=== PATIENT | female | born 1990 | race Hispanic/Latino ===

== ENCOUNTER 2017-10-03 23:04 | Day surgery (SDC) | payer OTHER ==
[2017-10-03 23:51] VITALS: BP 121/72; TEMP 98.5; BMI 34.8
--- NOTE | 2017-10-04 00:35 | PDOC.EVN ---
Event Note - Event Note Event Note: @0030: Triage A PNC Patient first seen by Shaji Marquez (Resident) HPI: 27 yo G1Po at 35 weeks 3 days with irregular CTXs, dsch. No LOF, no fevers , no VB. Good FM. Has had repeated sonos this for "baby big". No GDM HX. Review of systems: complete ROS done and positive as per HPI only. Medical HX: neg Surgical HX: neg Social HX: neg OB History: G1 Physical exam: 121/72 Afebrile NAD Ut soft NT No gross evidence of VB or ROM CX closed/TH/High Monitors: NST reactive, contractions Q10 min, irreg Assessment: Threatened PTL at 35 weeks. No evidence ROM. Plan: 1. Amnisure sent per protocol 2. No evidence true PTL 3. No FFN as greater than 34 weeks 4. Await result.
[2017-10-04 00:37] LABS: Amnisure Test No Membranes Rupture (No Rupture)
[2017-10-04 00:38] LABS: Amnisure Internal Control QC ACCEPTABLE (ACCEPTABLE)
[2017-10-04 00:52] LABS: FFN Internal QC Analyzer PASS (PASS); FFN Internal QC Cassette PASS (PASS); Fetal Fibronectin Negative (Negative)
--- NOTE | 2017-10-04 00:59 | PDOC.EVN ---
Event Note - Event Note Event Note: Amnisure neg. VP3 to be checked tomorrow as results not in tonight. OK for outpatient follow up.
== END 2017-10-04 01:04 | disposition home or self-care (01) ==
LOC: L&D/OP 23:04
PROVIDERS: ATTEND Obstetrics & Gynecology
DX: O47.03 False labor before 37 completed weeks of gestation, third trimester (principal); Z3A.35 35 weeks gestation of pregnancy
CPT/HCPCS: 82731; 84112; 87480; 87510; 87660; 99283

== ENCOUNTER 2017-10-14 06:41 | Day surgery (SDC) | payer OTHER ==
[2017-10-14 07:13] VITALS: BP 110/64; TEMP 98; BMI 35.0
--- NOTE | 2017-10-14 07:40 | PDOC.LDHP ---
Labor and Delivery H&P Chief complaint: contractions HPI: 27yo @ 37.0wks with SCOTT of 11/04/17. She reports contractions q10min that started earlier this AM. Denies any vaginal discharge, vaginal bleeding or LOF. +FM. Denies any FUCHS, vision changes or swelling. Reports has been uncomplicated, but that she has had 2 additional US due to baby measuring big. Current gestational age (weeks): 37 Due date: 11/04/17 Dating criteria: other (Unsure if dated by LMP vs. US--awaiting [facility] records) Current complications: none (reports repeat US due to "baby measuring big") Abnormal US findings: No (reports baby measuring big) Past Medical History: none Current medications: pre- vitamins Previous surgical history: none Social history: none - Physical Exam Vital signs reviewed and normal: yes (BP: 110/64 HR: 71) General: NAD Heart: RRR Lungs: CTAB Abdomen: gravid Extremeties: no edema FHT: category 1 [place] contractions every: none - Vaginal Exam cm dilated: 1 Effacement: 25% Station: -2 - OB Labs Blood type: O RH: positive Antibody Screen: negative HIV: negative RPR: negative HEPSAg: negative 1 hour GCT: negative (BS of 100) GBS: positive Rubella: immune Additional Labs: hx of keyshawn and BV in s/p treatment. - Plan Plan: other (27yo @ 37.0wks w/ SCOTT of 11/04/17 who p/w contractions. Patient without any contractions on monitor and also denies any contractions currently. Encourage PO hydration. Labor precautions discussed. Follow-up at [facility] as scheduled.) <Olivia Orozco - Last Filed: 10/14/17 07:38> <Kayy Leonard - Last Filed: 10/14/17 08:07> Allergies/Adverse Reactions: Allergies Allergy/AdvReac Type Severity Reaction Status Date / Time No Known Allergies Allergy Verified 10/14/17 07:13 Attending Addendum - Attending Addendum I personally evaluated the patient and discussed the management with Dr. Orozco. I agree with the History, Examination, Assessment and Plan documented above. <Kayy Leonard - Last Filed: 10/14/17 08:07>
== END 2017-10-14 08:00 | disposition home or self-care (01) ==
LOC: L&D/OP 06:41
PROVIDERS: ATTEND Obstetrics & Gynecology
DX: O60.03 Preterm labor without delivery, third trimester (principal); Z3A.37 37 weeks gestation of pregnancy; Z79.899 Other long term (current) drug therapy
CPT/HCPCS: 99282

== ENCOUNTER 2017-11-02 13:07 | Day surgery (SDC) | payer OTHER ==
[2017-11-02 13:30] VITALS: BMI 36.4
[2017-11-02 13:31] VITALS: BP 118/83; TEMP 97.5
[2017-11-02 14:14] LABS: Amnisure Test No Membranes Rupture (No Rupture)
[2017-11-02 14:15] LABS: Amnisure Internal Control QC ACCEPTABLE (ACCEPTABLE)
--- NOTE | 2017-11-02 15:30 | PDOC.LDHP ---
Labor and Delivery H&P Chief complaint: contractions, other (Passage of mucous plug) HPI: 27 yo G1PO @ 39.5 wks by LMP presents here w/ cc of Ctx and possible loss of fluid. Says this morning started having vaginal pressure pain. Also having RUQ pain. Was feeling the ctx a lot. Thought they were getting a lot more regular. Also said this morning passed a mucous plug and was a little wet in her pants. Says it felt like she peed a little bit. Denies any vaginal itching or increased discharge. Denies any foul odor. Denies any urinary sx's. Denies fever /chills. denies n/v/d/c. Reports feeling baby move. Denies any bleeding. No other concerns or complaints at this time. Current gestational age (weeks): 39 (5 days) Due date: 11/04/17 Dating criteria: last menstrual period Grav: 1 Para: 0 Current complications: other (Baby measuring 4281 kg. EFW is in 95.7% on u/s 10/30/17. CECILIA 5.31 Family hx of Down syndrome.) Past Medical History: None Current medications: pre- vitamins Previous surgical history: none Allergies/Adverse Reactions: Allergies Allergy/AdvReac Type Severity Reaction Status Date / Time No Known Allergies Allergy Verified 10/14/17 07:13 Social history: none - Physical Exam Vital signs reviewed and normal: yes General: NAD Heart: RRR Lungs: CTAB Abdomen: gravid Extremeties: no edema FHT: category 2, late decelerations [place] contractions every: 5 min - Vaginal Exam cm dilated: 1 Effacement: 50% Station: -3 - OB Labs Blood type: O RH: positive Antibody Screen: negative HIV: negative RPR: negative HEPSAg: negative 1 hour GCT: negative GBS: positive Rubella: immune Additional Labs: gonorrhea negative hgb a1c 5.9. - Assessment in Third Trimester -Having Round ligament pain and pain in RUQ area. -In Early Labor phase - Plan Plan: observation in L&D -: 27 yo G1PO @ 39.5 wks here for ctx and possible rupture of membranes -Amniosure negative -Vaginal exam 1.5/50/-3. Will recheck cervix in a few hours and assess for any change. -Cat 2 strip. 1 late decel noted on monitor. FHR 150's. Moderate variability. Ctx every 5 minutes. Seem to be fairly regular. There was concern for LGA infant seen on previous U/S. Most recent u/s 10/30/17 shows EFW @ 4281 g. 95.7%. Pt does not have GDM. CECILIA was low at 5.31 cm on u/s 10/30/17. Performed bedside CECILIA on patient, calculated @ 11.71 cm. Possibility mentioned for patient to have due to large size. Pt is not GDM and size is not above 5000g. No indication for at this time. Pt can be induced and have trial of labor. CECILIA improved on bedside U/S today. Will keep patient in observations and recheck for cervical change in a few hours. We will keep her on the monitor and continue to assess for any stress.
== END 2017-11-02 16:25 | disposition home or self-care (01) ==
LOC: L&D/OP 13:07
PROVIDERS: ATTEND Obstetrics & Gynecology
DX: O47.1 False labor at or after 37 completed weeks of gestation (principal); Z3A.39 39 weeks gestation of pregnancy; Z79.899 Other long term (current) drug therapy
CPT/HCPCS: 84112

== ENCOUNTER 2017-11-04 12:08 | Inpatient (IN) | payer MEDICAID, OTHER, SELFPAY ==
[2017-11-04] MEDS ORDERED: Bupivacaine 0.25% HCL 30 ML VIAL ONE (13:36)
[2017-11-04] MEDS: Lactated Ringer's 1,000 ML IV SCH (21:55)
[2017-11-04 21:58] VITALS: BMI 36.8
[2017-11-04] MEDS ORDERED: Lidocaine 1% (PF) 30 ML VIAL SC PRN (22:32)
[2017-11-04] MEDS ORDERED: Ondansetron HCl/PF 4 MG/2 ML Vial IVP PRN (22:32)
[2017-11-04] MEDS ORDERED: Acetaminophen 500 MG TAB PO PRN (22:32)
[2017-11-04] MEDS ORDERED: Promethazine HCl 25 MG/ML VIAL IM PRN (22:32)
[2017-11-04] MEDS ORDERED: LR / Pitocin 40 units/1000 ml 1,000 ML IV PRN (22:32)
[2017-11-04 22:44] LABS: Hemoglobin 12.2 g/dL (12.0-16.0); Mean Corpuscular Hemoglobin 30.9 pg (27.0-31.0); Mean Corpuscular Volume 90.8 fl (81.0-99.0); Mean Platelet Volume 8.3 fL (7.4-10.4); Platelet Count 157 thou/uL (130-400); RBC Distribution Width 13.7 % (11.5-14.5); Red Blood Cell (RBC) Count 3.96 mill/uL (4.20-5.40); White Blood Cell (WBC) Count 8.8 thou/uL (4.8-10.8)
[2017-11-04] MEDS ORDERED: Penicillin G Potassium 5 MILL.UNITS in Sodium Chloride 0.9% 100 ML IVPB SCH (22:45)
[2017-11-04] MEDS ORDERED: Carvedilol 6.25 MG TAB PO SCH (22:45)
--- NOTE | 2017-11-04 23:04 | PDOC.LDHP ---
Labor and Delivery H&P Chief complaint: scheduled induction HPI: 27 yo @ 40w0d by LMP presents for scheduled induction. She was seen 2 days ago for contractions and sent home with return precautions. Today she denies contractions or vaginal bleeding. She does state that she has had a normal amount of vaginal discharge. She also notes movement. She has no chest pain, sob, headaches, n/v/d, vision changes, or edema. No other concerns this morning. Current gestational age (weeks): 40 (0) Due date: 11/04/17 Dating criteria: last menstrual period Grav: 1 Para: 0 Current complications: none Abnormal US findings: No (Concern for LGA) Current medications: pre- vitamins Previous surgical history: none - Physical Exam Vital signs reviewed and normal: yes General: NAD, resting Heart: RRR Lungs: nonlabored breathing Abdomen: gravid Extremeties: no edema FHT: category 1 [place] contractions every: 5-7 minutes - Vaginal Exam cm dilated: 1 Effacement: 50% Station: -2 - OB Labs Blood type: O RH: positive Antibody Screen: negative HIV: negative RPR: negative HEPSAg: negative 1 hour GCT: negative GBS: positive Urine drug screen: not done Rubella: immune - Assessment L&D Assessment: elective induction at term 27 yo @ 40w0d presents for elective induction 1. Term - Cytotec induction - Continue monitoring - Continue q4h cervical checks - Continue supportive care. - Plan Plan: admit to L&D, cervical ripening <Chandan Crawford - Last Filed: 11/04/17 23:03> <Carmen Powell - Last Filed: 11/05/17 00:46> Allergies/Adverse Reactions: Allergies Allergy/AdvReac Type Severity Reaction Status Date / Time No Known Allergies Allergy Verified 11/04/17 21:48 Attending Addendum - Attending Addendum I personally evaluated the patient and discussed the management with Dr. Crawford. I agree with the History, Examination, Assessment and Plan documented above with any addition or exceptions noted below- Briefly this is a 27 yo @ 40 weeks admitted for elective induction; concern for macrosomis infant- last USG showed EFW= 4200g. Normal labs including GDM screen. Patient denies complaints. Afebrile VSS SVE 1.5/50/-2/mid position and soft. Category 1 FHTs. [place] - ctx q7-9 min. A/P: IUP @40 weeks- Cytotec #1 placed at 2300. Recheck in 3 hours. Reassuring FHTs. <Carmen Powell - Last Filed: 11/05/17 00:46>
[2017-11-05] MEDS ORDERED: Misoprostol 100 MCG TAB VAG SCH
--- NOTE | 2017-11-05 02:22 | PDOC.LDPN ---
Labor & Delivery Progress Note - Subjective Subjective: comfortable, painful contractions - Objective Vital signs reviewed and normal: yes General: NAD, breathing through contractions Dilation: 2.5 cm Effacement: 50% Station: -2 FHT: category 1 [place] contractions every: 3 minutes Resuscitative measures: maternal IV fluids, maternal position change - Assessment (1) Term Code(s): Z34.80 - ENCOUNTER FOR SUPRVSN OF NORMAL , UNSP TRIMESTER Current Visit: Yes Status: Acute Comment: 27 yo @ 40w1d by LMP scheduled for elective induction 1. Term - Cytotec x1, too frequent contractions to continue - Continue supportive care - Continue q4H checks Plan: continue plan of care, resuscitative measures
[2017-11-05] MEDS: Lactated Ringer's 1,000 ML IV SCH ×4 (03:13→19:16)
[2017-11-05] MEDS ORDERED: Naloxone HCl 0.4 mg/ml Vial IVP PRN ×2 (08:39)
[2017-11-05] MEDS ORDERED: Promethazine HCl 25 MG/ML VIAL IM PRN (08:39)
[2017-11-05] MEDS ORDERED: Acetaminophen 325 MG TAB PO PRN (08:39)
[2017-11-05] MEDS ORDERED: diphenhydrAMINE 50 MG/ML VIAL IVP PRN (08:39)
[2017-11-05] MEDS ORDERED: ePHEDrine/0.9% NaCl/PF SYRINGE 50 mg/10 ml SLOW IVP PRN (08:39)
[2017-11-05] MEDS ORDERED: Lactated Ringer's 500 ML IV PRN (08:39)
[2017-11-05] MEDS ORDERED: Ondansetron HCl/PF 4 MG/2 ML Vial IVP PRN (08:39)
[2017-11-05] MEDS ORDERED: Eucerin (Mineral Oil/Petrolatum,White) 30 gm Jar TOP PRN (08:39)
[2017-11-05] MEDS: Bupivacaine 0.5% 20 ML, Fentanyl 400 MCG in Sodium Chloride 0.9% 72 ML EPIDURAL SCH ×2 (08:41→16:01)
[2017-11-05] MEDS ORDERED: Fentanyl 4mcg/Marcaine 0.1% Cassette 100 ML EPIDURAL SCH (08:45)
[2017-11-05] MEDS ORDERED: Communication Order-Pharmacy FS SCH (08:45)
--- NOTE | 2017-11-05 09:06 | PDOC.LDPN ---
Labor & Delivery Progress Note - Subjective Subjective: comfortable, vaginal pressure - Objective Vital signs reviewed and normal: yes General: NAD, resting Uterine fundus: non tender SVE: 8:30 Dilation: 4 Effacement: 50% Station: -2 FHT: category 1, variability present [place] contractions every: 5 - Assessment (1) Term Code(s): Z34.80 - ENCOUNTER FOR SUPRVSN OF NORMAL , UNSP TRIMESTER Current Visit: Yes Status: Acute Comment: 27 yo @ 40w1d by LMP scheduled for elective induction 1. Term - Cytotec x1, too frequent contractions to continue - Continue supportive care - Continue q4H checks Plan: continue plan of care -: 27 yo F @40.1 weeks here for induction of Labor. Received cytotec when she came in last night. Was 1/50/-2@2300. She had frequent ctx with pain. Cytotec has since been removed. She has now progressed from a 3/50/-2 @ 6:30 to a 4/50/-2 @ 8:30. Will continue check her in a few hours and assess for progress. Will likely want to add pitocin if begins to stall out Epidural in place. Pain being well controlled at this time. FHT 155. Category 1 strip. Accelerations noted. Ctx every 5 mins. Will continue to continuously monitor. <Alexandre Edward - Last Filed: 11/05/17 08:59> Attending Addendum - Attending Addendum I personally evaluated the patient and discussed the management with Dr. Edward I agree with the History, Examination, Assessment and Plan documented above with any addition or exceptions noted below. 27 yo female at 40.1 wks by LMP/12.1 wk sono here for elective late term IOL. Doing well. Pain intensity increasing with contractions. Now 4/50/-2. Membranes intact. Cat 1 tracing. 1. IOL for sIUP: IOB labs and anatomy sono reviewed. 1 hour gtt = 100. 3T negative. Flu/Tdap given. s/p miso x1 2. Glucose intolerance: A1c = 5.9% in 1T. 1 hour gtt = 100. 3. Anemia of 4. LGA fetus: 4281 g at 39.2 wks. Cephalic on exam. 5. BMI 37: Maternal wt gain this 29 lbs 6. GBS pos: On PCN. Continue continuous monitoring. Will repeat exam in 2 hours. If unchanged , will start pitocin. Shanelle <Tova Omer - Last Filed: 11/05/17 13:57>
[2017-11-05] MEDS: Penicillin G 2.5 MILL.units 2.5 MILL.UNITS in Premix Bag 1 BAG IVPB SCH ×5 (11:34→23:36)
--- NOTE | 2017-11-05 12:23 | PDOC.LDPN ---
Addendum entered and electronically signed by Alexandre Edward MD 11/05/17 12:56 : Station on this check @12 and check @ 10:30 were -2, not 0. Has not made change since 8:30 Original Note: Labor & Delivery Progress Note - Subjective Subjective: comfortable - Objective Vital signs reviewed and normal: yes General: NAD, resting Uterine fundus: non tender SVE: 12:00 Dilation: 4 Effacement: 50% Station: 0 FHT: category 2, late decelerations Other exam findings: Light fluid AROM: clear fluid IUPC placed: yes Resuscitative measures: maternal oxygen, maternal position change - Assessment (1) Term Code(s): Z34.80 - ENCOUNTER FOR SUPRVSN OF NORMAL , UNSP TRIMESTER Current Visit: Yes Status: Acute Plan: continue plan of care -: 27 yo @ 40w1d by LMP scheduled for elective induction -Having some late decelrations and possible minimal variability. FHT 150. -Vaginal exam 50/0. Unchanged from check at 10:30. -Due to Category 2 heart strip we have ruptured membranes and placed IUPC. FHT show moderate variability and FHR in 140. -Adjusting moms position and giving mom oxygen. -Will continue to monitor and recheck vaginal exam at 2:30 -Will hold pitocin for augmentation at this time due to Category 2 strip. -Epidural in place. Pain being well controlled. Maternal vital signs stable. <Alexandre Edward - Last Filed: 11/05/17 12:24> Attending Addendum - Attending Addendum I personally evaluated the patient and discussed the management with Dr. Edward I agree with the History, Examination, Assessment and Plan documented above with any addition or exceptions noted below. 27 yo female at 40.1 wks by LMP/12.1 wk sono here for elective late term IOL. Epidural in place. No pain. FHT reassuring cat 2. Changes to cat 1 with external stim. AROM with minimal fluid. FSE placed. FHT improved to cat 1. Will monitor closely. Start pit with reassuring. Exam unchanged from 0830 but contractions inadequate. Fetus now improved after epidural. 1. IOL for sIUP: IOB labs and anatomy sono reviewed. 1 hour gtt = 100. 3T negative. Flu/Tdap given. s/p miso x1 AROM with minimal fluid at 1200, FSE placed. 2. Glucose intolerance: A1c = 5.9% in 1T. 1 hour gtt = 100. 3. Anemia of 4. LGA fetus: 4281 g at 39.2 wks. Cephalic on exam. 5. BMI 37: Maternal wt gain this 29 lbs 6. GBS pos: On PCN. Continue continuous monitoring. Will repeat exam in 2 hours or prn. Add pitocin when able. Shanelle <Tova Omer - Last Filed: 11/05/17 14:07>
--- NOTE | 2017-11-05 12:27 | PDOC.LDPN ---
Addendum entered and electronically signed by Alexandre Edward MD 11/05/17 12:29 : This note is timed at 10:30 when the check was performed. Original Note: Labor & Delivery Progress Note - Subjective Subjective: comfortable - Objective Vital signs reviewed and normal: yes General: NAD, resting Uterine fundus: non tender SVE: 10:30 Dilation: 4 Effacement: 50% Station: 0 FHT: category 1, variability present [place] contractions every: 5-6 - Assessment (1) Term Code(s): Z34.80 - ENCOUNTER FOR SUPRVSN OF NORMAL , UNSP TRIMESTER Current Visit: Yes Status: Acute Plan: continue plan of care, pitocin for augmentation -: 27 yo F @40.1 weeks here for induction of Labor. Received cytotec when she came in last night. Was 1/50/-2@2300. She had frequent ctx with pain. Cytotec has since been removed. She has now progressed from a 3/50/-2 @ 6:30 to a 4/50/-2 @ 8:30. Recent check 4/50/-2 @10:30. Has not made change at this time. -Will start pitocin for augmentation of labor. Epidural in place. Pain being well controlled at this time. FHT 155. Category 1 strip. Accelerations noted. Ctx every 5 mins. Will continue to continuously monitor. <Alexandre Edward - Last Filed: 11/05/17 12:27> Attending Addendum - Attending Addendum I personally evaluated the patient and discussed the management with Dr. Edward I agree with the History, Examination, Assessment and Plan documented above with any addition or exceptions noted below. 27 yo female at 40.1 wks by LMP/12.1 wk sono here for elective late term IOL. Doing well. Just recently received epidural for pain control. Repeat exam unchanged at 4/50/-2. Membranes intact. FHT cat 1 to reassuring cat 2 after epidural. Starting IVF bolus. Maternal BP lower after epidural but not hypotensive. Continue to adjust and monitor closely. 1. IOL for sIUP: IOB labs and anatomy sono reviewed. 1 hour gtt = 100. 3T negative. Flu/Tdap given. s/p miso x1 2. Glucose intolerance: A1c = 5.9% in 1T. 1 hour gtt = 100. 3. Anemia of 4. LGA fetus: 4281 g at 39.2 wks. Cephalic on exam. 5. BMI 37: Maternal wt gain this 29 lbs 6. GBS pos: On PCN. Continue continuous monitoring. Will repeat exam in 2 hours or prn. Add pitocin when able vs AROM. Shanelle <Tova Omer - Last Filed: 11/05/17 14:02>
[2017-11-05] MEDS ORDERED: LR 500 ML/Oxytocin 10 units 500 ML IV SCH (13:30)
--- NOTE | 2017-11-05 14:28 | PDOC.LDPN ---
Labor & Delivery Progress Note - Subjective Subjective: comfortable - Objective Vital signs reviewed and normal: yes General: NAD, resting Uterine fundus: non tender SVE: 2:20 Dilation: 4.5 Effacement: 75% Station: -2 FHT: category 2, late decelerations, variability present [place] contractions every: 3-5 AROM: clear fluid IUPC placed: yes FSE placed: yes - Assessment (1) Term Code(s): Z34.80 - ENCOUNTER FOR SUPRVSN OF NORMAL , UNSP TRIMESTER Current Visit: Yes Status: Acute Plan: continue plan of care, pitocin for augmentation -: 27 yo @ 40w1d by LMP scheduled for elective induction -Having some late decelrations and possible minimal variability. FHT 150. Cat 2 strip. Improves to Cat 1 strip with stimulation of the head. Accelerations noted. -AROM w/ minimal fluid @ 1200 -Vaginal exam 4.5/75%/-2. Has made some change from check at noon. -FSE in place. IUPC placed at this time to check strength of contractions. -Adjusting moms position and giving mom oxygen. -Will continue to monitor and recheck vaginal exam at 4:30 -Started giving pitocin. Pitocin at a rate of 8 -Epidural in place. Pain being well controlled. -GBS positive. Tx with penicillin -Maternal vital signs stable. Glucose intolerance: A1c = 5.9% in 1T. 1 hour gtt = 100. Anemia of LGA fetus: 4281 g at 39.2 wks. Cephalic on exam. BMI 37: Maternal wt gain this 29 lbs <Alexandre Edward - Last Filed: 11/05/17 14:32> Attending Addendum - Attending Addendum I personally evaluated the patient and discussed the management with Dr. Edward I agree with the History, Examination, Assessment and Plan documented above with any addition or exceptions noted below. 27 yo female at 40.1 wks by LMP/12.1 wk sono here for elective late term IOL. Maternal BP improving with IVFs along with FHT. Cat 1. Now 4.5/75/-2. 1. IOL for sIUP: IOB labs and anatomy sono reviewed. 1 hour gtt = 100. 3T negative. Flu/Tdap given. s/p miso x1 AROM with minimal fluid at 1200, FSE placed. IUPC placed 1415 2. Glucose intolerance: A1c = 5.9% in 1T. 1 hour gtt = 100. 3. Anemia of 4. LGA fetus: 4281 g at 39.2 wks. Cephalic on exam. 5. BMI 37: Maternal wt gain this 29 lbs 6. GBS pos: On PCN - x 3 doses. Continue continuous monitoring. Will repeat exam in 2 hours or prn. FSE, IUPC and pitocin per protocol. Shanelle <Tova Omer - Last Filed: 11/05/17 14:38>
--- NOTE | 2017-11-05 17:43 | PDOC.LDPN ---
Labor & Delivery Progress Note - Subjective Subjective: comfortable - Objective Vital signs reviewed and normal: yes General: NAD, resting Uterine fundus: non tender SVE: 1530 Dilation: 5 Effacement: 75% Station: -1 FHT: category 2, late decelerations, variability present [place] contractions every: 3-5 min AROM: clear fluid IUPC placed: yes FSE placed: yes Resuscitative measures: maternal oxygen - Assessment (1) Term Code(s): Z34.80 - ENCOUNTER FOR SUPRVSN OF NORMAL , UNSP TRIMESTER Current Visit: Yes Status: Acute Plan: continue plan of care, pitocin for augmentation -: 27 yo @ 40w1d by LMP scheduled for elective induction -Had some late variables at 345 per report of the nurse. Thought was due to hyperstimulation from the Pitocin. d/c the pitocin. FHT have since improved, moderate variability. FHT 150. Cat 2 strip. -AROM w/ minimal fluid @ 1200 -Vaginal exam 5/75%/-1. Making change from check @ 1430 -FSE in place. IUPC placed. -Adjusting moms position and giving mom oxygen. -Will continue to monitor and recheck vaginal exam in a few hours -Pitocin was briefly stopped. FHT have since improved. Will restart pitocin now. -Epidural in place. Pain being well controlled. -GBS positive. Tx with penicillin x3 -Maternal vital signs stable. Glucose intolerance: A1c = 5.9% in 1T. 1 hour gtt = 100. Anemia of LGA fetus: 4281 g at 39.2 wks. Cephalic on exam. BMI 37: Maternal wt gain this 29 lbs <Alexandre Edward - Last Filed: 11/05/17 17:43> Attending Addendum - Attending Addendum I personally evaluated the patient and discussed the management with Dr. Edward I agree with the History, Examination, Assessment and Plan documented above with any addition or exceptions noted below. 27 yo female at 40.1 wks by LMP/12.1 wk sono here for elective late term IOL. Became tachysystole with FHT cat 2. Pit stopped. Now Cat 1. SVE 5/75/-2. 1. Elective IOL for late-term sIUP: IOB labs and anatomy sono reviewed. 1 hour gtt = 100. 3T negative. Flu/Tdap given. s/p miso x1 AROM with minimal fluid at 1200, FSE placed. IUPC placed 1415 Pit per protocol. 2. Glucose intolerance: A1c = 5.9% in 1T. 1 hour gtt = 100. 3. Anemia of 4. LGA fetus: 4281 g at 39.2 wks. Cephalic on exam. 5. BMI 37: Maternal wt gain this 29 lbs 6. GBS pos: On PCN - x 3 doses. Continue continuous monitoring. Will repeat exam in 2 hours or prn. FSE, IUPC and pitocin per protocol. Shanelle <Tova Omer - Last Filed: 11/06/17 12:35>
--- NOTE | 2017-11-05 19:59 | PDOC.LDPN ---
Labor & Delivery Progress Note - Subjective Subjective: comfortable - Objective Vital signs reviewed and normal: yes General: NAD, resting Dilation: 7.5 Effacement: 100% Station: -1 FHT: category 2 [place] contractions every: 2 minutes AROM: meconium stained fluid IUPC placed: yes FSE placed: yes Resuscitative measures: maternal oxygen, maternal IV fluids, maternal position change - Assessment (1) Term Code(s): Z34.80 - ENCOUNTER FOR SUPRVSN OF NORMAL , UNSP TRIMESTER Current Visit: Yes Status: Acute Comment: 27 yo @ 40w1d by LMP scheduled for elective induction 1. Term , active labor - Continue q2h checks - Pitocin decreased - Continue supportive care Plan: continue plan of care, pitocin for augmentation, resuscitative measures
--- NOTE | 2017-11-05 21:59 | PDOC.LDPN ---
Labor & Delivery Progress Note - Subjective Subjective: comfortable, vaginal pressure, loss of fluid (mec-stained) - Objective Vital signs reviewed and normal: yes General: NAD Uterine fundus: non tender Dilation: 9/100/-1 FHT: category 2, early decelerations, variable decelerations, variability present [place] contractions every: 3-4 min AROM: meconium stained fluid - Assessment (1) LGA (large for gestational age) fetus affecting mother, antepartum Code(s): O36.60X0 - MATERNAL CARE FOR EXCESS GROWTH, UNSP TRIMESTER, UNSP Current Visit: Yes Status: Acute Qualifiers: Fetus number: single or unspecified fetus Qualified Code(s): O36.60X0 - Maternal care for excessive growth, unspecified trimester, not applicable or unspecified (2) Term Code(s): Z34.80 - ENCOUNTER FOR SUPRVSN OF NORMAL , UNSP TRIMESTER Current Visit: Yes Status: Acute Plan: continue plan of care, pitocin for augmentation -: 27 yo @ 40w1d by LMP scheduled for elective induction 1. Term , active labor - Pitocin re-started with reassuring FHTs - Continue supportive care 2. LGA fetus - caution w/ 2nd stage of labor & delivery
--- NOTE | 2017-11-05 23:50 | PDOC.LDPN ---
Labor & Delivery Progress Note - Subjective Subjective: comfortable - Objective Vital signs reviewed and normal: yes General: NAD Dilation: Anterior lip Effacement: 100% Station: 0 FHT: category 2, variable decelerations [place] contractions every: 3 minutes IUPC placed: yes FSE placed: yes Resuscitative measures: maternal oxygen, maternal IV fluids, maternal position change - Assessment (1) Term Code(s): Z34.80 - ENCOUNTER FOR SUPRVSN OF NORMAL , UNSP TRIMESTER Current Visit: Yes Status: Acute Comment: 27 yo @ 40w1d by LMP scheduled for elective induction 1. Term , active labor - Pitocin re-started with reassuring FHTs - Continue supportive care 2. LGA fetus - caution w/ 2nd stage of labor & delivery Plan: continue plan of care, pitocin for augmentation
[2017-11-06] MEDS ORDERED: Lidocaine 1% (PF) 30 ML VIAL ONE (01:18)
[2017-11-06 04:16] LABS: Actual Bicarbonate (HCO3a) 23.4 mEq/L (22-26); Analyzer IN Cardio OR; Base Excess (BEa) -5.9 mEq/L (0 (+/-) 2.5)
--- NOTE | 2017-11-06 04:23 | PDOC.OPDEL ---
OB Operative/Delivery Note Delivery Dr/Surgeon: Ty Khan Assist: Attending- Dr. Powell Pre-Delivery Diagnosis: elective induction, other (LGA infant) Procedure/Post Delivery Dx: spontaneous vaginal delivery Weeks gestation: 40 Anesthesia: epidural - Additional Findings/Plan Placenta delivered: spontaneous Repaired Obstetrical Laceration: 4th degree Post delivery plan: routine recovery
[2017-11-06] MEDS: Ibuprofen 800 MG TAB PO PRN ×2 (06:34→22:15)
--- NOTE | 2017-11-06 08:05 | DN-2 ---
DELIVERY DATE: 11/06/2017 DELIVERY TIME: 04:01 a.m. RESIDENT SURGEON: Michael Khan M.D. WEB DEVELOPMENT INTERN SURGEON: Chandan Crawford M.D. ATTENDING SURGEON: Carmen Powell M.D. ANESTHESIA: Epidural, 20 mL of 1% lidocaine with epinephrine. ESTIMATED BLOOD LOSS: 450 mL PREOPERATIVE DIAGNOSES: 1. Induction of term intrauterine . 2. Large gestational age. 3. GBS positive. POSTOPERATIVE DIAGNOSES: 1. Term intrauterine , delivered. 2. Fourth degree perineal laceration status post repair. 3. GBS colonized with adequate prophylaxis. 4. LGA . INDICATIONS: Ms. Delaney is a 27-year-old G1, P0 at 40.2 weeks by LMP, who presented for induction of labor indicated for post-dates and LGA fetus on ultrasound. DELIVERY NOTE: Ms. Delaney is a 27-year-old G1, P0 at 40.2 weeks, delivered a viable male at 4:01 a.m. on 11/06/2017. Following an uneventful antepartum course, a vigorous was delivered over nonintact perineum which had an episiotomy cut prior to delivery of the head and subsequently extended to a 4th degree laceration. The infant delivered in the occiput anterior position. Anterior shoulder and remainder of the body were delivered. No nuchal cord was noted. The head was held down and nares and mouth were bulb suctioned. Cord was cut and clamped. Cord gas and cord blood were collected. The placenta was delivered in the Deutsch presentation at 04:12 a.m. Three-vessel cord was noted and the placenta appeared to be intact. Fundal massage was performed and the fundus was found to be firm. Cervix was found to be free of lacerations; however, there was a fourth degree perineal laceration as noted previously. The rectal mucosa was reapproximated with a running nonlocking 3-0 chromic stitch. The rectal sphincter was reapproximated with 4 [id number] suture using 3-0 Vicryl. The [id number] sutures were placed along the posterior, superior, inferior and anterior fascia of the sphincter muscle. The vaginal mucosa was reapproximated using a 3-0 Vicryl in the usual fashion. Adequate hemostasis was noted. The vagina and cervix were again inspected and found to be hemostatic. Prior to repair the laceration, approximately 20 mL of 1% lidocaine without epinephrine was injected for additional comfort. During the repair, the patient received 1 mg of IV Stadol for additional pain control. The went to the nursery in good condition for routine care. Apgars were 8 and 9 at 1 and 5 minutes respectively. Infants weight was 10 pounds 9 ounces. The patient tolerated the delivery and the laceration repair well and went to the unit after routine recovery. Following the repair of the laceration, an incorrect sponge count was found. After extensive examination of the patient's room, delivery supplies, and products of conception, the sponge was not found. A KUB to verify that the lap is not located in the patient is currently pending. [facility]
[2017-11-06] MEDS ORDERED: Preparation H Ointment 28 GM TUBE PR PRN (08:17)
[2017-11-06] MEDS ORDERED: diphenhydrAMINE 25 MG CAP PO PRN (08:17)
[2017-11-06] MEDS ORDERED: Ferrous Sulfate 325 MG TAB PO SCH (08:17)
[2017-11-06] MEDS ORDERED: Ibuprofen 800 MG TAB PO SCH (08:17)
[2017-11-06] MEDS ORDERED: Lanolin Ointment 7 GM TUBE TOP PRN (08:17)
[2017-11-06] MEDS ORDERED: LR / Pitocin 40 units/1000 ml 1,000 ML IV SCH (08:17)
[2017-11-06] MEDS ORDERED: Adacel (T-DAP) 0.5 ML VIAL IM ONE (08:17)
[2017-11-06] MEDS ORDERED: Bisacodyl 10 MG SUPP PR PRN (08:17)
[2017-11-06] MEDS ORDERED: Benzocaine/Menthol 20-0.5% 60 ML CAN TOP PRN (08:17)
[2017-11-06 08:41] LABS: #Basophils 0.1 thou/uL (0.0-0.2); #Monocytes 0.9 thou/uL (0.11-0.59); %Basophils 0.4 % (0.0-1.0); %Eosinophils 0.1 % (0.0-10.0); %Lymphocytes 6.2 % (21.0-51.0); %Monocytes 5.6 % (0.0-10.0); %Neutrophils 87.6 % (42.0-75.0); Hemoglobin 10.9 g/dL (12.0-16.0); Mean Corpuscular HGB CONC 32.1 g/dL (32.0-36.0); Mean Corpuscular Hemoglobin 29.9 pg (27.0-31.0); Platelet Count 120 thou/uL (130-400); RBC Distribution Width 13.5 % (11.5-14.5); Red Blood Cell (RBC) Count 3.65 mill/uL (4.20-5.40); White Blood Cell (WBC) Count 15.9 thou/uL (4.8-10.8)
--- NOTE | 2017-11-06 08:59 | RAD ---
TWO VIEWS OF THE ABDOMEN: INDICATION: Incorrect lap count. IMPRESSION: There is displacement of the small bowel and large bowel superiorly within the abdominal cavity likel y related to a gravid uterus. There is mixed density material seen within the lower pelvis which may reflect packing in the region of the vagina. No additional suspicious radiopaque density consistent with a raytec sponge is grossly evident. The upper quadrants are not included in the field of view. Would recommend consideration for repeat imaging to evaluate both the right and left upper quadrant if the abdominal cavity was entered into during the procedure. Findings were called to the L and D floor to the PAPER BALING MACHINE OPERATOR physician on service at 7:56 a.m. on 11/06/17. POS: [facility]
[2017-11-06] MEDS: Docusate Calcium (SURFAK) 240 MG CAP PO SCH ×2 (09:23→21:08)
[2017-11-06] MEDS: Prenatal Vitamin 1 TAB PO SCH (09:23)
[2017-11-06] MEDS: Polyethylene Glycol 3350 17 GM Packet PO SCH (09:23)
[2017-11-06] MEDS ORDERED: CEFAZOLIN/Water 2 GM/20 ML SYRINGE SLOW IVP SCH (10:15)
[2017-11-06] MEDS: Lactated Ringer's 1,000 ML IV SCH (14:45)
[2017-11-06] MEDS: Ibuprofen 800 MG TAB PO SCH ×2 (15:01→15:07)
[2017-11-06] MEDS: Ferrous Sulfate 325 MG TAB PO SCH (17:17)
[2017-11-07] MEDS: Penicillin G 2.5 MILL.units 2.5 MILL.UNITS in Premix Bag 1 BAG IVPB SCH ×3 (01:17→01:20)
[2017-11-07] MEDS: Lactated Ringer's 1,000 ML IV SCH ×2 (01:19→08:43)
[2017-11-07] MEDS ORDERED: Ibuprofen 800 MG TAB PO SCH (02:00)
[2017-11-07] MEDS: Ibuprofen 800 MG TAB PO SCH ×3 (05:49→22:05)
[2017-11-07] MEDS: HYDROcodone/Acetaminophen 5/325 mg Tablet PO PRN ×3 (05:49→22:05)
[2017-11-07 06:23] LABS: Hemoglobin 9.5 g/dL (12.0-16.0); Mean Corpuscular HGB CONC 34.1 g/dL (32.0-36.0); Mean Corpuscular Hemoglobin 31.5 pg (27.0-31.0); Mean Corpuscular Volume 92.5 fl (81.0-99.0); Mean Platelet Volume 7.7 fL (7.4-10.4); Platelet Count 123 thou/uL (130-400); RBC Distribution Width 13.7 % (11.5-14.5); White Blood Cell (WBC) Count 11.1 thou/uL (4.8-10.8)
[2017-11-07] MEDS: Prenatal Vitamin 1 TAB PO SCH (08:44)
[2017-11-07] MEDS: Ferrous Sulfate 325 MG TAB PO SCH ×2 (08:44→18:26)
[2017-11-07] MEDS: Polyethylene Glycol 3350 17 GM Packet PO SCH (08:44)
[2017-11-07] MEDS: Docusate Calcium (SURFAK) 240 MG CAP PO SCH ×2 (08:44→22:05)
[2017-11-07] MEDS: Milk Of Magnesia 30 ML UDCUP PO PRN (08:44)
--- NOTE | 2017-11-07 09:08 | PDOC.PP ---
Post Progress Note Post Day #: 1 Subjective: CC: Pernieal pain HPI: patient reports rectal pain with passing gas. No BM yet. pain otherwise controlled. Having some difficulty but working with senior market intelligence consultant. PO intake tolerated: yes Flatus: yes (No BM) Ambulation: yes Vital Signs (12 hours) Temp Pulse Resp BP 11/07/17 08:38 97.6 F 56 L 20 106/52 L 11/07/17 07:40 98.2 F 78 16 11/07/17 04:00 98.2 F 78 16 11/07/17 00:00 98.6 F 75 16 122/79 Weight Weight 103.419 kg - Physical Examination General: NAD Cardiovascular: no m/r/g, RRR Respiratory: clear to auscultation bilaterally, non-labored breathing Abdominal: + bowel sounds, lochia (vaginal swelling nearly resolved. perineum without drainaged or d/c.), no distention, appropriately TTP Fundus firm & at: umbilicus Extremities: negative homans (B) Neurological: no gross focal deficits Result Diagrams: 11/07/17 05:54 Additional Labs: Post Labs Blood Type O POSITIVE 11/04/17 21:55 (1) LGA (large for gestational age) fetus affecting mother, antepartum Code(s): O36.60X0 - MATERNAL CARE FOR EXCESS GROWTH, UNSP TRIMESTER, UNSP Status: Acute QualifierTitle: Fetus number: single or unspecified fetus Qualified Code( s): O36.60X0 - Maternal care for excessive growth, unspecified trimester, not applicable or unspecified Comment: 27 yo G1 now P1 delivered via on 11/06/17 at 0401. Pain well controlled. Ambulating and eating. H&H trending down but no signs of continued blood loss. Likely 2/2 hemodiluation. will continue to monitor overnight. KUB did not reveal raytec in patient. Likely only 19 raytec at beginning of case. (2) Fourth degree laceration of perineum during delivery, Code(s): O70.3 - FOURTH DEGREE PERINEAL LACERATION DURING DELIVERY Status: Acute Comment: No BM yet but passing gas. Continue bowel regimen. Will avoid narcotics if possible. BID sitz baths. Ice pack PRN. <Michael Khan W - Last Filed: 11/07/17 09:06> Vital Signs (12 hours) Temp Pulse Resp BP 11/07/17 08:38 97.6 F 56 L 20 106/52 L 11/07/17 07:40 98.2 F 78 16 Weight Weight 103.419 kg Result Diagrams: 11/07/17 05:54 Additional Labs: Post Labs Blood Type O POSITIVE 11/04/17 21:55 <Tova Omer - Last Filed: 11/07/17 17:41> Attending Addendum - Attending Addendum I personally evaluated the patient and discussed the management with Dr. Khan I agree with the History, Examination, Assessment and Plan documented above with any addition or exceptions noted below. 27 yo now female s/p complicated by 4th degree laceration on 11/06/17 at 0401 after prolonged elective IOL. PPD #1 Doing well. Lochia appropriate. Ambulating only in room. Vulvar edema improving. + flatus. Voiding well. No BM. Pain controlled. VSS. Afebrile. Fundus firm below umbilicus. Vulvar edema improving. No hematoma. Incision intact. No drainage. No communications. 1. s/p complicated : Routine care. 2. 4th degree laceration s/p repair: Ancef x1 given. No s/sx of infection at this time. Edema improved on exam today. Incision in tact. Pain controlled. On BM regiment. Precautions discussed. 3. Glucose intolerance: Follow up outpatient. 4. Anemia of : Continue supplemental iron. 5. Throbocytopenia: Will continue to trend. Not pathologic at this time. No mucousal bleeding. No placental bed bleeding. 6. BMI 37: Maternal wt gain this 29 lbs. Breast feeding. Nutrition consult. 7. GBS pos: s/p PCN during labor. Continue routine pp care. Possible d/c to home 48 to 72 hours pp. Shanelle <Tova Omer - Last Filed: 11/07/17 17:41>
[2017-11-08] MEDS: Ibuprofen 800 MG TAB PO SCH ×2 (06:19→16:05)
[2017-11-08 06:30] LABS: Hemoglobin 9.6 g/dL (12.0-16.0); Mean Corpuscular Hemoglobin 31.6 pg (27.0-31.0); Mean Corpuscular Volume 92.8 fl (81.0-99.0); Mean Platelet Volume 7.5 fL (7.4-10.4); Platelet Count 143 thou/uL (130-400); RBC Distribution Width 13.8 % (11.5-14.5); Red Blood Cell (RBC) Count 3.03 mill/uL (4.20-5.40); White Blood Cell (WBC) Count 8.3 thou/uL (4.8-10.8)
--- NOTE | 2017-11-08 07:34 | PDOC.PP ---
Post Progress Note Post Day #: 2 Subjective: CC: vaginal and rectal pain. HPI: states she still has burning sensation when urinating and mild pain when passing gas. No BM yet. PO intake tolerated: yes Flatus: yes Ambulation: yes Vital Signs (12 hours) Temp Pulse Resp BP 11/08/17 00:01 98.9 F 72 18 118/62 11/07/17 20:10 99.2 F 60 16 121/66 Weight Weight 103.419 kg - Physical Examination General: NAD Cardiovascular: no m/r/g, RRR Respiratory: clear to auscultation bilaterally, non-labored breathing Abdominal: + bowel sounds, lochia, no distention, appropriately TTP Fundus firm & at: umbilicus Extremities: negative homans (B) Neurological: no gross focal deficits Psychiatric: A&Ox3, normal affect Result Diagrams: 11/08/17 06:06 Additional Labs: Post Labs Blood Type O POSITIVE 11/04/17 21:55 (1) LGA (large for gestational age) fetus affecting mother, antepartum Code(s): O36.60X0 - MATERNAL CARE FOR EXCESS GROWTH, UNSP TRIMESTER, UNSP Status: Acute QualifierTitle: Fetus number: single or unspecified fetus Qualified Code( s): O36.60X0 - Maternal care for excessive growth, unspecified trimester, not applicable or unspecified Comment: 27 yo G1 now P1 delivered via on 11/06/17 at 0401. Pain well controlled. Ambulating and eating. H&H stabilized. No BM yet. continue bowel regimen. Keep in hospital until passing stool. platelets increased overnight to appropriate range. (2) Fourth degree laceration of perineum during delivery, Code(s): O70.3 - FOURTH DEGREE PERINEAL LACERATION DURING DELIVERY Status: Acute Comment: No BM yet but passing gas. Continue bowel regimen. Will avoid narcotics if possible. BID sitz baths. Ice pack PRN. <Michael Khan - Last Filed: 11/08/17 07:29> Vital Signs (12 hours) Temp Pulse Resp BP 11/08/17 12:14 98.3 F 57 L 18 124/68 11/08/17 08:00 98.6 F 55 L 18 126/62 Weight Weight 103.419 kg Result Diagrams: 11/08/17 06:06 Additional Labs: Post Labs Blood Type O POSITIVE 11/04/17 21:55 <Tova Omer - Last Filed: 11/08/17 13:28> Attending Addendum - Attending Addendum I personally evaluated the patient and discussed the management with Dr. Khan I agree with the History, Examination, Assessment and Plan documented above with any addition or exceptions noted below. 27 yo now female s/p complicated by 4th degree laceration on 11/06/17 at 0401 after prolonged elective IOL. PPD #2 Doing well. No compliants this morning. No acute changes. Lochia appropriate. Ambulating well. Vulvar edema resolved. + flatus. Voiding well. No BM. Pain controlled. VSS. Afebrile. Fundus firm below umbilicus. 1. s/p complicated : Routine care. Needs follow up visit with [facility] on Thursday. 2. 4th degree laceration s/p repair: Ancef x1 given. No s/sx of infection at this time. Edema resolved. Incision in tact. Pain controlled. On BM regiment. Precautions discussed. Follow up on Thursday for exam at [facility]. 3. Glucose intolerance: Follow up outpatient. 4. Anemia of : Continue supplemental iron. 5. Throbocytopenia: Resolved. 6. BMI 37: Maternal wt gain this 29 lbs. Breast feeding. Nutrition consult outpatient. 7. GBS pos: s/p PCN during labor. 8. Breast feeding: consult. 9. Contraception: LARC Ok for d/c later today. May B-n-B if stays overnight. ABrayMD <Tova Omer - Last Filed: 11/08/17 13:28>
[2017-11-08] MEDS: Ferrous Sulfate 325 MG TAB PO SCH ×2 (09:31→16:05)
[2017-11-08] MEDS: Milk Of Magnesia 30 ML UDCUP PO PRN (09:31)
[2017-11-08] MEDS: Polyethylene Glycol 3350 17 GM Packet PO SCH (09:31)
[2017-11-08] MEDS: Prenatal Vitamin 1 TAB PO SCH (09:31)
[2017-11-08] MEDS: Docusate Calcium (SURFAK) 240 MG CAP PO SCH (09:31)
[2017-11-08 12:15] VITALS: BP 124/68; TEMP 98.3
== END 2017-11-08 20:53 | disposition home or self-care (01) | DRG 775 ==
LOC: L&D 21:17 → 3SW 11-06 08:14
PROVIDERS: ADMIT Family Medicine; ATTEND Family Medicine
PROC: 10E0XZZ Delivery of Products of Conception, External Approach (ICD-10-PCS; principal; 2017-11-06)
PROC: 0DQP0ZZ Repair Rectum, Open Approach (ICD-10-PCS; 2017-11-06)
PROC: 4A0HXCZ Measurement of Products of Conception, Cardiac Rate, External Approach (ICD-10-PCS; 2017-11-06)
DX: O36.60X0 Maternal care for excessive fetal growth, unspecified trimester, not applicable or unspecified (principal); D69.6 Thrombocytopenia, unspecified; O70.3 Fourth degree perineal laceration during delivery; O99.814 Abnormal glucose complicating childbirth; O99.12 Other diseases of the blood and blood-forming organs and certain disorders involving the immune mechanism complicating childbirth; D64.9 Anemia, unspecified; O99.02 Anemia complicating childbirth; O76 Abnormality in fetal heart rate and rhythm complicating labor and delivery; O99.824 Streptococcus B carrier state complicating childbirth; Z37.0 Single live birth; Z3A.40 40 weeks gestation of pregnancy
CPT/HCPCS: 36415; 51702; 74018; 82805; 85025; 85027; 88307; J0595; J2001; J2405; J2540; J3010; J3490; J7050; J7120; S0020

== ENCOUNTER 2019-10-26 16:52 | Emergency (ER) | payer SELFPAY ==
--- NOTE | 2019-10-26 18:01 | CT ---
Exam: Head CT without contrast HISTORY: Headache, x1 day. Progressively worsening. COMPARISON: none FINDINGS: Hemorrhage: No intraparenchymal hemorrhage or extra-axial hematoma. Brain parenchyma: Cortical coulter-white matter differentiation is preserved. No mass effect or midline shift. Basilar cisterns are patent. Ventricular system: Ventricles and sulci are patent and symmetric. Calvarium: Intact. Sinuses and mastoid air cells: Mild mucosal disease of the right maxillary sinus. IMPRESSION: No acute intracranial process. Mild right maxillary sinus mucosal disease.
[2019-10-26] MEDS ORDERED: Metoclopramide HCl 10 MG/2 ML VIAL ONE (18:17)
[2019-10-26] MEDS ORDERED: Ketorolac Tromethamine 30 MG/ML VIAL ONE (18:17)
[2019-10-26] MEDS ORDERED: diphenhydrAMINE 50 MG/ML VIAL ONE (18:17)
== END 2019-10-26 20:17 | disposition home or self-care (01) ==
LOC: ERS 16:52
DX: R51 Headache (principal); E11.9 Type 2 diabetes mellitus without complications
CPT/HCPCS: 70450; 96365; 96375; J1200; J1885; J2765